=== PATIENT | male | born 1950 | race Caucasian/White ===

== ENCOUNTER 2022-07-04 13:31 | Emergency (ER) | payer OTHER ==
[2022-07-04] MEDS ORDERED: Sodium Chloride 0.9% 10 ML Syringe FLUSH PRN (18:10)
[2022-07-04] MEDS ORDERED: Acetaminophen/HYDROcodone 325-5 MG Tab PO ONE (18:51)
== END 2022-07-04 19:00 | disposition home or self-care (01) ==
LOC: JD.ED 13:31
DX: K40.90 Unilateral inguinal hernia, without obstruction or gangrene, not specified as recurrent (principal)
CPT/HCPCS: 76705; 99283; A9270